=== PATIENT | male | born 1975 | race Caucasian/White ===

== ENCOUNTER 2020-04-24 19:32 | Observation (INO) ==
[2020-04-24] MEDS ORDERED: 0.9 % Sodium Chloride 1,000 ML IVC ONE (19:44)
[2020-04-24 20:47] LABS: Hematocrit 42.5 % (37.5-50.1); Hemoglobin 14.4 g/dL (12.9-16.9); Mean Corpuscular HGB Conc 33.9 g/dL (31.6-35.5); Mean Corpuscular Hemoglobin 31.2 pg (28.0-33.3); Mean Platelet Volume 9.9 fL (9.4-12.4); Platelet Count 152 K/mcL (140-400); Red Blood Count 4.62 M/mcL (4.19-5.50); White Blood Count 4.5 K/mcL (4.3-11.1)
[2020-04-24 20:58] LABS: Troponin I < 0.03 ng/mL (< 0.04)
[2020-04-24 21:03] LABS: Alanine Aminotransferase 39 Units/L (7-52); Albumin 3.4 g/dL (3.5-5.7); Albumin/Globulin Ratio 1.5 (1.1-2.2); Alkaline Phosphatase 48 Units/L (34-104); Aspartate Amino Transferase 38 Units/L (13-39); BUN/Creatinine Ratio 11 (6-26); Bilirubin,Direct 0.1 mg/dL (0.0-0.2); Bilirubin,Indirect 0.3 mg/dL (0.0-1.0); Bilirubin,Total 0.4 mg/dL (0.3-1.0); Blood Urea Nitrogen 11 mg/dL (6-20); Calcium 7.8 mg/dL (8.6-10.3); Carbon Dioxide 24 mEq/L (23-29); Chloride 104 mEq/L (98-107); Globulin 2.3 g/dL (2.4-3.5); Glucose 92 mg/dL (70-105); Osmolality,Calculated 283 (280-300); Potassium 3.7 mEq/L (3.5-5.1); Sodium 137 mEq/L (136-145); Total Protein 5.7 g/dL (6.4-8.9); eGFR For African Americans > 60 (> 60); eGFR For Non-African Americans > 60 (> 60)
[2020-04-24 21:06] LABS: Activated Partial Thrombo Time 29.6 Seconds (26.0-36.0); Prothrombin Time 12.4 Seconds (9.4-12.1)
[2020-04-24 21:22] LABS: Anisocytosis 1+ (Not Present); Dohle Bodies Present (Not Present); Neutrophils # 3.5 K/mcL (1.6-8.9)
[2020-04-24 21:23] LABS: Platelet Estimate Normal (Normal); Toxic Vacuolation Present (Not Present)
[2020-04-24] MEDS ORDERED: Isovue-370 500 ML BOTTLE IVP ONE (21:58)
[2020-04-24 22:35] LABS: Amylase 32 Units/L (29-103); Lipase 26 Units/L (11-82)
[2020-04-25] MEDS ORDERED: 0.9 % Sodium Chloride 1,000 ML IVC ONE (01:07)
[2020-04-25] MEDS ORDERED: Ibuprofen 800 MG TABLET PO ONE (02:35)
[2020-04-25] MEDS ORDERED: 0.9 % Sodium Chloride 1,000 ML IVC SCH ×3 (05:25→16:30)
[2020-04-25] MEDS ORDERED: Naloxone 0.4 MG/ML INJ IVP PRN (05:25)
[2020-04-25] MEDS ORDERED: Acetaminophen 325 MG TABLET PO PRN (05:25)
[2020-04-25] MEDS ORDERED: Ondansetron ODT 4 MG TAB.RAPDIS SL PRN (05:25)
[2020-04-25] MEDS ORDERED: levoFLOXacin 750 MG/150 ML 750 MG/150 ML BAG IVPB SCH (10:00)
[2020-04-25 12:35] LABS: Bilirubin,Urine Negative (Negative); Blood,Urine Negative (Negative); Clarity,Urine Clear (Clear); Color,Urine Yellow (Yellow); Glucose,Urine (UA) Normal (Normal); Ketones,Urine 15 mg/dL (Negative); Leukocyte Esterase,Urine Negative (Negative); Nitrite,Urine Negative (Negative); PH,Urine 6.5 pH Units (5.0-8.0); Protein,Urine Negative (Neg-Trace); Specific Gravity,Urine 1.015 (1.010-1.025); Urobilinogen,Urine Normal (Normal)
[2020-04-25] MEDS: Ipratropium/Albuterol Neb 3 ML IH SCH ×2 (12:36→17:02)
[2020-04-25 12:50] LABS: Amphetamine Screen,Urine Negative ng/mL (Cutoff=1000); Barbiturate Screen,Urine Negative ng/mL (Cutoff=200); Benzodiazepines Screen,Urine Negative ng/mL (Cutoff=200); Cannabinoid Screen,Urine Negative ng/mL (Cutoff = 50); Cocaine Screen,Urine Negative ng/mL (Cutoff= 300); Opiate Screen,Urine Negative ng/mL (Cutoff=300); Phencyclidine Screen,Urine Negative ng/mL (Cutoff=25)
[2020-04-25 13:46] VITALS: BP 110/67
[2020-04-26] MEDS ORDERED: Ipratropium/Albuterol Neb 3 ML IH PRN (11:29)
== END 2020-04-25 17:23 | disposition other institution (70) ==
LOC: INPPIK 19:32 → EMEROOPIK 19:32 → MERGE 04-25 04:40 → INPPIK 04-25 05:24
PROVIDERS: ADMIT Family Medicine; ATTEND Family Medicine